=== PATIENT | male | born 1965 | race Caucasian/White ===

== ENCOUNTER → 2024-05-23 14:31 | Outpatient (CLI) | payer BC, SELFPAY ==
--- NOTE | ~2024-05-23 | XR_ITS ---
HISTORY: L side neck pain radiates/tingles down arm and 3-5th digits COMPARISON: None TECHNIQUE: 4 views of the cervical spine were performed FINDINGS: Visualization of the cervical spine to the superior endplate of C7. Straightening and slight reversal of the normal curvature of the cervical spine is identified. No prevertebral soft tissue swelling is appreciated. No acute compression fracture is noted. Degenerative disease is identified with osteophyte formation and disc space narrowing. The dens is equidistant between the pillars, without asymmetry. Air column within the trachea is midline. The visualized portions of the bilateral upper lung nesbitt are unremarkable. IMPRESSION: Degenerative disease, without acute fracture. Reviewed, dictated and finalized at location A. [employer]
== END ==
PROVIDERS: PCP Family Medicine Adolescent Medicine; Visit Provider Physician Assistant
DX: M50.323 Other cervical disc degeneration at C6-C7 level (principal)
CPT/HCPCS: 72050